=== PATIENT | female | born 1940 | race Caucasian/White ===

== ENCOUNTER 2017-12-11 17:59 | Emergency (ER) | payer MEDICARE, BC ==
[~2017-12-11] VITALS: Ht 170.2 cm; Wt 107.0 kg
[~2017-12-11 17:59] MED LIST: AMLO5TAB PO; ATOR40TA PO; CARV25TA2 PO; CLOT15CR74 TP; ESCI10TA PO; FURO-149 PO; GLIP5TAB13 PO; IPRA3AMP IH; LACT10SO7 PO; LAMO100T65 PO; LEVO137T24 PO; LORA1TAB PO; METF500T PO; MIRA50TA PO; MONT10TA21 PO; OMEP40CA37 PO; POTA10TA19 PO; RISP1TAB13 PO; SPIR25TA5 PO; TRAM50TA2 PO; TRAZ-146 PO; VALS160T2 PO
[2017-12-11 18:57] LABS: BASOPHILS % (AUTO) 0.3 % (0-1); EOSINOPHILS # (AUTO) 0.1 X10'3 (0-0.9); EOSINOPHILS % (AUTO) 1.1 % (0-6); HEMATOCRIT 43.6 % (35.0-45.0); HEMOGLOBIN 14.4 g/dl (12.0-16.0); LYMPHOCYTES # (AUTO) 2.1 X10'3 (1.1-4.8); LYMPHOCYTES % (AUTO) 19.5 % (21-51); MEAN CORPUSCULAR HEMOGLOBIN 31.2 PG (27.0-31.0); MEAN CORPUSCULAR VOLUME 94.5 FL (78-98); MEAN PLATELET VOLUME 7.7 FL (7.4-10.4); MONOCYTES % (AUTO) 9.7 % (2-12); NEUTROPHILS # (AUTO) 7.5 X10'3 (1.8-7.7); NEUTROPHILS % (AUTO) 69.4 % (42-75); PLATELET COUNT 294 X10'3 (140-440); RED BLOOD COUNT 4.62 X10'6 (4.20-5.60); RED CELL DISTRIBUTION WIDTH 14.6 % (11.5-14.5); WHITE BLOOD COUNT 10.8 X10'3 (4.5-11.0)
[2017-12-11 18:59] LABS: CLARITY,URINE Clear (Clear); COLOR,URINE Yellow (Yellow); GLUCOSE, URINE Negative (Neg); KETONES,URINE Negative (Neg); LEUKOCYTE ESTERASE ,URINE Negative (Neg); NITRITES, URINE Negative (Neg); OCCULT BLOOD,URINE Negative (Neg); PH,URINE 7.5 (4.8-8.0); PROTEIN,URINE Trace mg/dl (Neg)
[2017-12-11 19:02] LABS: UA COLLECTION TYPE CLN CATCH MIDSTREAM
[2017-12-11 19:04] LABS: BACTERIA,URINE FEW /HPF (Neg); RBC,URINE 0-2 /HPF (0-2); SQUAMOUS EPITHELIAL CELL,UR FEW /LPF (FEW); WBC,URINE 0-4 /HPF (0-4)
[2017-12-11 19:05] LABS: URINE AMPHETAMINE SCREEN NEGATIVE (Neg); URINE BARBITUATE SCREEN NEGATIVE (Neg); URINE BENZODIAZEPINES SCREEN NEGATIVE (Neg); URINE CANNABINOID SCREEN NEGATIVE (Neg); URINE COCAINE SCREEN NEGATIVE (Neg); URINE METHADONE SCREEN NEGATIVE (Neg); URINE OPIATE SCREEN POSITIVE (Neg); URINE PHENCYCLIDINE SCREEN NEGATIVE (Neg)
[2017-12-11 19:13] LABS: ALANINE AMINOTRANSFERASE 23 U/L (12-78); ALBUMIN 3.8 G/DL (3.4-5.0); ALBUMIN/GLOBULIN RATIO 0.8 (1.1-1.5); ALKALINE PHOSPHATASE 85 IU/L (46-116); ANION GAP 12 (8-16); ASPARTATE AMINO TRANSFERASE 23 U/L (10-37); BILIRUBIN,TOTAL 0.4 MG/DL (0.1-1.0); BLOOD UREA NITROGEN 17 MG/DL (7-18); BUN/CREATININE RATIO 20.5 (6.6-38.0); CALCIUM 9.7 MG/DL (8.5-10.1); CHLORIDE 93 MMOL/L (99-107); CREATININE 0.83 MG/DL (0.40-0.90); GLUCOSE 144 MG/DL (70-104); POTASSIUM 3.6 MMOL/L (3.5-5.1); SODIUM 137 MMOL/L (135-145); TOTAL CARBON DIOXIDE 32.1 MMOL/L (24-32); TOTAL PROTEIN 8.5 G/DL (6.4-8.2); eGFR 67 ML/MIN
[2017-12-11 19:22] LABS: ETHANOL < 0.010 GM/DL (0.0-0.010)
[2017-12-11 19:27] LABS: ACETAMINOPHEN < 2.0 UG/ML (10-30)
[2017-12-11 20:36] VITALS: BP 161/95
[2017-12-11] MEDS ORDERED: HYDROcodone/acetaminophen 10/325mg tab PO ONE (21:30)
[2017-12-11] MEDS ORDERED: HYDR-3972 (23:53)
[2017-12-11] MEDS ORDERED: LUBI24CA5 PO (23:57)
[2017-12-11] MEDS ORDERED: ACET-2119 PO (23:57)
[2017-12-11] MEDS ORDERED: ONDA4TAB6 PO (23:57)
[2017-12-11] MEDS ORDERED: FENT-91 TD (23:57)
[2017-12-31] MEDS ORDERED: PANT40TA4 PO (07:32)
[2017-12-31] MEDS ORDERED: METF500T6 PO (07:32)
[2017-12-31] MEDS ORDERED: DULO30CA51 PO ×2 (07:32)
[2017-12-31] MEDS ORDERED: LURA80TA3 PO (07:32)
[2017-12-31] MEDS ORDERED: LISI-604 PO (07:32)
[2017-12-31] MEDS ORDERED: FURO40TA4 PO (07:32)
== END 2017-12-11 23:23 ==
LOC: ER 17:59 → EEVIPCON 23:00 → ADULT MH 23:00 → UNDOADMIN 23:00 → UNDODISIN 23:23 → ER 23:23 → CANBEDREQ 12-12 00:52
DX: F41.9 Anxiety disorder, unspecified (principal); F32.9 Major depressive disorder, single episode, unspecified; R45.851 Suicidal ideations; I10 Essential (primary) hypertension; J45.909 Unspecified asthma, uncomplicated; G89.29 Other chronic pain; Z98.890 Other specified postprocedural states; Z79.84 Long term (current) use of oral hypoglycemic drugs; Z79.899 Other long term (current) drug therapy
CPT/HCPCS: 36415; 80053; 80305; 80320; 80329; 81001; 84443; 85025; 99285

== ENCOUNTER 2018-11-10 08:16 | Inpatient (IN) | payer MEDICARE, BC ==
[~2018-11-10] VITALS: Ht 170.2 cm; Wt 95.0 kg
[~2018-11-10 08:16] MED LIST changes: +ACET-2119 PO; -AMLO5TAB PO; -CLOT15CR74 TP; +DULO30CA51 PO; -ESCI10TA PO; +FURO40TA4 PO; -GLIP5TAB13 PO; +HYDR-3972; -IPRA3AMP IH; +IPRA3AMP31 IH; -LACT10SO7 PO; +LISI-604 PO; +LUBI24CA5 PO; +LURA80TA3 PO; +METF-950 PO; -METF500T PO; -OMEP40CA37 PO; +PANT40TA4 PO; -RISP1TAB13 PO; -SPIR25TA5 PO; -TRAM50TA2 PO; -TRAZ-146 PO; +TRAZ-219 PO; -VALS160T2 PO
[2018-11-10 09:02] LABS: BASOPHILS % (AUTO) 0.4 % (0-1); EOSINOPHILS % (AUTO) 0.2 % (0-6); HEMATOCRIT 44.6 % (35.0-45.0); HEMOGLOBIN 15.5 g/dl (12.0-16.0); LYMPHOCYTES % (AUTO) 21.1 % (21-51); MEAN CORPUSCULAR HEMOGLOBIN 31.6 PG (27.0-31.0); MEAN CORPUSCULAR HGB CONC 34.8 g/dL (33.0-36.5); MEAN CORPUSCULAR VOLUME 90.9 FL (78-98); MEAN PLATELET VOLUME 7.2 FL (7.4-10.4); MONOCYTES # (AUTO) 1.2 X10'3 (0-0.9); MONOCYTES % (AUTO) 12.6 % (2-12); NEUTROPHILS # (AUTO) 6.3 X10'3 (1.8-7.7); NEUTROPHILS % (AUTO) 65.7 % (42-75); PLATELET COUNT 278 X10'3 (140-440); RED BLOOD COUNT 4.91 X10'6 (4.20-5.60); RED CELL DISTRIBUTION WIDTH 13.3 % (11.5-14.5); WHITE BLOOD COUNT 9.6 X10'3 (4.5-11.0)
[2018-11-10 09:16] LABS: ALANINE AMINOTRANSFERASE 29 U/L (12-78); ALBUMIN 3.5 G/DL (3.4-5.0); ALBUMIN/GLOBULIN RATIO 0.9 (1.1-1.5); ALKALINE PHOSPHATASE 91 IU/L (46-116); ANION GAP 13 (8-16); ASPARTATE AMINO TRANSFERASE 39 U/L (10-37); BLOOD UREA NITROGEN 16 MG/DL (7-18); BUN/CREATININE RATIO 16.3 (6.6-38.0); CALCIUM 9.6 MG/DL (8.5-10.1); CHLORIDE 81 MMOL/L (99-107); CREATININE 0.98 MG/DL (0.40-0.90); GLUCOSE 164 MG/DL (70-104); LIPASE 137 U/L (73-393); SODIUM 121 MMOL/L (135-145); TOTAL CARBON DIOXIDE 26.9 MMOL/L (24-32); TOTAL PROTEIN 7.5 G/DL (6.4-8.2); eGFR 55 ML/MIN
[2018-11-10 09:19] LABS: POTASSIUM 2.6 MMOL/L (3.5-5.1)
[2018-11-10] MEDS ORDERED: normal saline 1000ML IV soln IVB ONE (09:25)
[2018-11-10] MEDS ORDERED: potassium Cl 20 mEq SR tablet PO ONE (09:25)
[2018-11-10] MEDS ORDERED: ondansetron/PF 4mg/2ml inj IV ONE (09:40)
[2018-11-10 09:42] LABS: MAGNESIUM 1.2 MG/DL (1.5-2.4)
[2018-11-10] MEDS: potassium 10mEq/100ml NS w/LIDOcaine (10mg/bag) IV SCH ×2 (09:45→11:03)
[2018-11-10] MEDS ORDERED: HYDROcodone/acetaminophen 10/325mg tab PO ONE (10:15)
[2018-11-10 10:22] LABS: CLARITY,URINE CLEAR (Clear); COLOR,URINE YELLOW (Yellow); GLUCOSE, URINE 100 mg/dl (Neg); KETONES,URINE 15 mg/dl (Neg); LEUKOCYTE ESTERASE ,URINE NEGATIVE (Neg); NITRITES, URINE NEGATIVE (Neg); OCCULT BLOOD,URINE TRACE-INTACT (Neg); PH,URINE 5.5 (4.8-8.0); PROTEIN,URINE 30 mg/dl (Neg); UROBILINOGEN,URINE 0.2 E.U/dL (0.2-1.0)
[2018-11-10 10:26] LABS: UA COLLECTION TYPE STRAIGHT CATH
[2018-11-10 10:30] LABS: BACTERIA,URINE FEW /HPF (Neg); MUCUS STRANDS FEW /LPF (Neg); SQUAMOUS EPITHELIAL CELL,UR FEW /LPF (FEW); WBC,URINE 0-4 /HPF (0-4)
[2018-11-10] MEDS ORDERED: insulin Lispro (HumaLOG) vial - multi-dose SQ SCH (10:55)
[2018-11-10] MEDS ORDERED: dextrose 50%-water 50ml dispensing syringe IV PRN ×2 (10:55)
[2018-11-10] MEDS ORDERED: metoclopramide 5 mg/ml inj IV PRN (10:55)
[2018-11-10] MEDS ORDERED: mag hydrox/Alum hydrox/simeth 30ml oral suspension PO PRN (10:55)
[2018-11-10] MEDS ORDERED: glucagon, human recombinant 1mg kit SUBCUT PRN (10:55)
[2018-11-10] MEDS: K and/or MAG REPLACEMENT MC SCH (10:55)
[2018-11-10] MEDS ORDERED: acetaminophen 325mg tablet PO PRN ×2 (10:55)
[2018-11-10] MEDS ORDERED: dextrose ORAL solution 15 GM/59 ML bottle PO PRN ×2 (10:55)
[2018-11-10] MEDS ORDERED: potassium Cl 40MEQ/NS 500ml 500 ML IV PRN ×2 (10:55)
[2018-11-10] MEDS ORDERED: magnesium 4gm in 100ml NS 100 ML IV PRN (10:55)
[2018-11-10] MEDS ORDERED: magnesium 2GM in 50ml NS 50 ML IV PRN (10:55)
[2018-11-10] MEDS ORDERED: magnesium hydroxide 30ml (MOM) UD suspension PO PRN (10:55)
[2018-11-10] MEDS ORDERED: potassium Cl 20 mEq SR tablet PO PRN ×2 (10:55)
[2018-11-10] MEDS ORDERED: ondansetron/PF 4mg/2ml inj IV PRN (10:55)
[2018-11-10] MEDS ORDERED: MESSAGE TO PHARMACY PO ONE (10:55)
[2018-11-10 11:11] LABS: URINE AMPHETAMINE SCREEN NEGATIVE (Neg); URINE BARBITUATE SCREEN NEGATIVE (Neg); URINE BENZODIAZEPINES SCREEN NEGATIVE (Neg); URINE CANNABINOID SCREEN NEGATIVE (Neg); URINE COCAINE SCREEN NEGATIVE (Neg); URINE METHADONE SCREEN NEGATIVE (Neg); URINE OPIATE SCREEN NEGATIVE (Neg); URINE PHENCYCLIDINE SCREEN NEGATIVE (Neg)
[2018-11-10] MEDS: potassium Cl 20mEq in NS 1,000 ML IV SCH ×2 (11:36→20:51)
[2018-11-10 11:45] LABS: HEMOGLOBIN A1C 6.9 % (4.5-6.2)
[2018-11-10] MEDS ORDERED: HYDR-4353 PO (12:36)
[2018-11-10] MEDS ORDERED: OMEP20TA23 PO (12:36)
[2018-11-10] MEDS ORDERED: LACT10SO PO (12:36)
[2018-11-10] MEDS ORDERED: AMLO2.5T2 PO (12:36)
[2018-11-10] MEDS ORDERED: LOSA50TA64 PO (12:36)
[2018-11-10] MEDS ORDERED: METF-436 PO (12:36)
[2018-11-10] MEDS ORDERED: ARIP5TAB20 PO (12:36)
[2018-11-10] MEDS ORDERED: DULO60CA64 PO (12:36)
[2018-11-10] MEDS ORDERED: LAMO200T PO (12:36)
[2018-11-10 13:00] VITALS: BP 161/97
--- NOTE | 2018-11-10 13:00 | NUR ---
Received report from ED RN Shayan. Patient arrived to unit at 1300, was transferred to bed and vital signs were obtained. Telemetry monitoring was initiated and a wick was placed. 2RN skin check was obtained and physical assessment was completed. Pt is comfortable in bed at this time, and was oriented to the room. is at bedside, will continue to monitor.
--- NOTE | 2018-11-10 14:41 | NUR ---
PAGER ID: [phone] MESSAGE: [id number]. Pt's K came back critical at 2.9. Will replace per protocol. Priyanka [id number]
[2018-11-10 15:00] VITALS: BP 165/79
[2018-11-10] MEDS: LIDOcaine 1% 30ml vial 5 ML in potassium Cl 40MEQ/NS 500ml 500 ML IV SCH ×2 (17:20→21:29)
[2018-11-10] MEDS ORDERED: carVEDilol 12.5mg tablet PO SCH (17:30)
[2018-11-10] MEDS ORDERED: non-formulary drug (Carvedilol 1 TAB) PO SCH (17:30)
[2018-11-10] MEDS ORDERED: non-formulary drug (Potassium Chloride (Klor-Con) 1 TAB) PO SCH (17:30)
[2018-11-10] MEDS: potassium chloride 10mEq ER tablet PO SCH (17:30)
[2018-11-10] MEDS ORDERED: LORazepam 1 MG tablet PO ONE (17:35)
[2018-11-10 18:00] VITALS: BP 172/97
--- NOTE | 2018-11-10 18:54 | NUR ---
Patient would like to have sariah Martinez notified of any medical changes. Phone number is in the SBAR.
[2018-11-10] MEDS: HYDROcodone/acetaminophen 10/325mg tab PO PRN ×2 (19:14→23:29)
[2018-11-10] MEDS: duloxetine 30mg CAPSULE.DR PO SCH (19:15)
[2018-11-10] MEDS: furosemide 40mg tablet PO SCH (19:15)
[2018-11-10] MEDS: magnesium Cl slow-release 64mg tablet PO PRN (19:16)
[2018-11-10] MEDS: lubiprostone 24mcg capsule PO SCH (19:16)
[2018-11-10] MEDS ORDERED: non-formulary drug (Duloxetine HCl 1 CAP) PO SCH (20:00)
[2018-11-10] MEDS: ipratropium/albuterol 3ml nebule IH SCH (20:26)
[2018-11-10] MEDS: NUT.TX.GLUC.INTOLER,LAC-FR,SOY (GLUCERNA) 237 ML PO SCH (20:40)
[2018-11-10] MEDS ORDERED: non-formulary drug (Trazodone HCl 3 TAB) PO SCH (21:00)
[2018-11-10] MEDS ORDERED: LAMOTRIGINE PO SCH (21:00)
[2018-11-10] MEDS: insulin glargine (Lantus) pen - multi-dose SQ SCH (21:00)
[2018-11-10] MEDS ORDERED: temazepam 15mg capsule PO PRN (21:00)
[2018-11-10] MEDS: traZODone 150mg tablet PO SCH (21:20)
[2018-11-10] MEDS: lamoTRIgine 100mg tablet PO SCH (21:20)
[2018-11-10] MEDS: diatr meglu/diatrizoate 30ml oral sol.-(3 dose) bottle PO SCH (21:26)
[2018-11-10 22:00] VITALS: BP 103/53
[2018-11-10] MEDS: LORazepam 1 MG tablet PO SCH (23:29)
[2018-11-11 02:00] VITALS: BP 98/55
--- NOTE | 2018-11-11 02:50 | NUR ---
Per telemetry, pt in afib with HR trending in mid 30's to low 40's. Notified MD, stated to hold coreg and ensure SBP >100 for administration of losartan and amlodipine. Will continue to monitor.
[2018-11-11] MEDS: potassium Cl 20mEq in NS 1,000 ML IV SCH ×4 (02:52→23:57)
[2018-11-11 05:06] LABS: BASOPHILS # (AUTO) 0.1 X10'3 (0-0.2); BASOPHILS % (AUTO) 0.6 % (0-1); EOSINOPHILS # (AUTO) 0.1 X10'3 (0-0.9); EOSINOPHILS % (AUTO) 0.9 % (0-6); HEMATOCRIT 36.9 % (35.0-45.0); HEMOGLOBIN 12.7 g/dl (12.0-16.0); LYMPHOCYTES # (AUTO) 2.9 X10'3 (1.1-4.8); LYMPHOCYTES % (AUTO) 32.3 % (21-51); MEAN CORPUSCULAR HEMOGLOBIN 31.6 PG (27.0-31.0); MEAN CORPUSCULAR HGB CONC 34.4 g/dL (33.0-36.5); MEAN CORPUSCULAR VOLUME 91.8 FL (78-98); MONOCYTES # (AUTO) 1.3 X10'3 (0-0.9); MONOCYTES % (AUTO) 14.6 % (2-12); NEUTROPHILS # (AUTO) 4.7 X10'3 (1.8-7.7); NEUTROPHILS % (AUTO) 51.6 % (42-75); PLATELET COUNT 226 X10'3 (140-440); RED BLOOD COUNT 4.02 X10'6 (4.20-5.60); RED CELL DISTRIBUTION WIDTH 13.2 % (11.5-14.5); WHITE BLOOD COUNT 9.1 X10'3 (4.5-11.0)
[2018-11-11 05:22] LABS: ALANINE AMINOTRANSFERASE 28 U/L (12-78); ALBUMIN 2.7 G/DL (3.4-5.0); ALBUMIN/GLOBULIN RATIO 0.9 (1.1-1.5); ALKALINE PHOSPHATASE 70 IU/L (46-116); ANION GAP 6 (8-16); ASPARTATE AMINO TRANSFERASE 42 U/L (10-37); BILIRUBIN,TOTAL 0.6 MG/DL (0.1-1.0); BLOOD UREA NITROGEN 12 MG/DL (7-18); BUN/CREATININE RATIO 15.6 (6.6-38.0); CALCIUM 8.3 MG/DL (8.5-10.1); CHLORIDE 90 MMOL/L (99-107); CREATININE 0.77 MG/DL (0.40-0.90); GLUCOSE 116 MG/DL (70-104); MAGNESIUM 1.2 MG/DL (1.5-2.4); PHOSPHORUS 3.2 MG/DL (2.3-4.5); POTASSIUM 4.2 MMOL/L (3.5-5.1); SODIUM 124 MMOL/L (135-145); TOTAL CARBON DIOXIDE 27.6 MMOL/L (24-32); TOTAL PROTEIN 5.8 G/DL (6.4-8.2); eGFR 73 ML/MIN
--- NOTE | 2018-11-11 06:20 | NUR ---
Patient in room PCU 3012. I have received report from YUE Wahl and had the opportunity to ask questions and assume patient care. Patient alert and awake at this time. Call light and items of frequent use in reach of patient.
--- NOTE | 2018-11-11 06:38 | NUR ---
Problems reprioritized. Patient report given, questions answered & plan of care reviewed with YUE Scott.
[2018-11-11 06:55] VITALS: BP 90/50
[2018-11-11] MEDS: ipratropium/albuterol 3ml nebule IH SCH ×4 (06:55→20:24)
[2018-11-11] MEDS: diatr meglu/diatrizoate 30ml oral sol.-(3 dose) bottle PO SCH ×2 (07:36→12:09)
[2018-11-11] MEDS: levoTHYROXINE 112mcg tablet PO SCH (07:37)
[2018-11-11] MEDS: levoTHYROXINE 25mcg tablet PO SCH (07:37)
[2018-11-11] MEDS: K and/or MAG REPLACEMENT MC SCH (07:39)
[2018-11-11] MEDS: potassium chloride 10mEq ER tablet PO SCH ×2 (07:39→16:53)
[2018-11-11] MEDS: lubiprostone 24mcg capsule PO SCH ×2 (07:41→16:53)
[2018-11-11] MEDS: aripiprazole 5mg tablet PO SCH (07:42)
[2018-11-11] MEDS: duloxetine 30mg CAPSULE.DR PO SCH ×2 (07:43→20:56)
[2018-11-11] MEDS: losartan 50mg tablet PO SCH (07:43)
[2018-11-11] MEDS: NUT.TX.GLUC.INTOLER,LAC-FR,SOY (GLUCERNA) 237 ML PO SCH ×3 (07:44→18:00)
[2018-11-11] MEDS: furosemide 40mg tablet PO SCH ×2 (07:45→20:56)
[2018-11-11] MEDS: atorvastatin 20mg tablet PO SCH (07:45)
[2018-11-11] MEDS: amLODIPine 5mg tablet PO SCH (07:45)
[2018-11-11] MEDS: montelukast 10mg tablet PO SCH (07:46)
[2018-11-11] MEDS: magnesium Cl slow-release 64mg tablet PO PRN ×2 (07:47→20:57)
[2018-11-11] MEDS: LORazepam 1 MG tablet PO SCH ×3 (07:51→23:57)
[2018-11-11] MEDS: enoxaparin 40mg/0.4ml syringe SQ SCH (07:54)
[2018-11-11] MEDS: HYDROcodone/acetaminophen 10/325mg tab PO PRN ×2 (07:54→19:40)
[2018-11-11] MEDS ORDERED: non-formulary drug (Levothyroxine Sodium (Synthroid) 1 TAB) PO SCH (08:00)
[2018-11-11] MEDS ORDERED: non-formulary drug (Atorvastatin Calcium* (Lipitor*) 1 TAB) PO SCH (08:00)
[2018-11-11 11:35] VITALS: BP 129/63
[2018-11-11] MEDS ORDERED: iohexol 300mg/ml 100ml inj. ONE (12:09)
--- NOTE | 2018-11-11 12:30 | NUR ---
Patient to CT via gurney with x1 staff. Patient alert, oriented and in no apparent distress on 2.0 L NC.
--- NOTE | 2018-11-11 12:58 | NUR ---
patient returned from CT. Patient alert oriented and in no apparent distress on 2L NC. Call light and items of frequent use in reach of patient at this time.
[2018-11-11] MEDS: MESSAGE TO NURSING PO NR (13:11)
[2018-11-11 15:00] VITALS: BP 109/63
[2018-11-11 18:00] VITALS: BP 118/52
--- NOTE | 2018-11-11 18:31 | NUR ---
Problems reprioritized. Patient report given, questions answered & plan of care reviewed with YUE Giron. Patient resting comfortably at this time. Call light and items of frequent use in reach of patient.
[2018-11-11] MEDS: lamoTRIgine 100mg tablet PO SCH (20:56)
[2018-11-11] MEDS: traZODone 150mg tablet PO SCH (20:56)
[2018-11-11] MEDS: insulin glargine (Lantus) pen - multi-dose SQ SCH (21:00)
[2018-11-11 23:00] VITALS: BP 106/57
[2018-11-12 03:00] VITALS: BP 119/62
[2018-11-12] MEDS: HYDROcodone/acetaminophen 10/325mg tab PO PRN ×3 (03:47→20:12)
[2018-11-12 05:57] LABS: BASOPHILS % (AUTO) 0.7 % (0-1); EOSINOPHILS # (AUTO) 0.2 X10'3 (0-0.9); EOSINOPHILS % (AUTO) 3.7 % (0-6); HEMATOCRIT 36.6 % (35.0-45.0); HEMOGLOBIN 12.7 g/dl (12.0-16.0); LYMPHOCYTES % (AUTO) 33.7 % (21-51); MEAN CORPUSCULAR HGB CONC 34.8 g/dL (33.0-36.5); MEAN CORPUSCULAR VOLUME 92.1 FL (78-98); MEAN PLATELET VOLUME 7.5 FL (7.4-10.4); MONOCYTES # (AUTO) 0.9 X10'3 (0-0.9); MONOCYTES % (AUTO) 14.9 % (2-12); NEUTROPHILS # (AUTO) 2.7 X10'3 (1.8-7.7); PLATELET COUNT 230 X10'3 (140-440); RED BLOOD COUNT 3.98 X10'6 (4.20-5.60); RED CELL DISTRIBUTION WIDTH 13.3 % (11.5-14.5); WHITE BLOOD COUNT 5.8 X10'3 (4.5-11.0)
--- NOTE | 2018-11-12 06:00 | NUR ---
Patient in room PCU 3012. I have received report from YUE Giron and had the opportunity to ask questions and assume patient care.
[2018-11-12 06:19] LABS: ALANINE AMINOTRANSFERASE 25 U/L (12-78); ALBUMIN 2.7 G/DL (3.4-5.0); ALBUMIN/GLOBULIN RATIO 0.8 (1.1-1.5); ALKALINE PHOSPHATASE 71 IU/L (46-116); ANION GAP 6 (8-16); ASPARTATE AMINO TRANSFERASE 35 U/L (10-37); BILIRUBIN,TOTAL 0.4 MG/DL (0.1-1.0); BLOOD UREA NITROGEN 10 MG/DL (7-18); CALCIUM 8.5 MG/DL (8.5-10.1); CHLORIDE 97 MMOL/L (99-107); CREATININE 0.77 MG/DL (0.40-0.90); GLUCOSE 118 MG/DL (70-104); MAGNESIUM 1.3 MG/DL (1.5-2.4); PHOSPHORUS 3.1 MG/DL (2.3-4.5); POTASSIUM 3.9 MMOL/L (3.5-5.1); SODIUM 130 MMOL/L (135-145); TOTAL CARBON DIOXIDE 27.1 MMOL/L (24-32); TOTAL PROTEIN 5.9 G/DL (6.4-8.2); eGFR 73 ML/MIN
[2018-11-12] MEDS: ipratropium/albuterol 3ml nebule IH SCH ×4 (07:12→21:11)
--- NOTE | 2018-11-12 07:44 | NUR ---
PAGER ID: [phone] MESSAGE: [id number] Shantelle Larsen K 2.9, following protocol, FYI. Zuri TURNER [id number]
[2018-11-12 07:53] VITALS: BP 130/69
[2018-11-12] MEDS: NUT.TX.GLUC.INTOLER,LAC-FR,SOY (GLUCERNA) 237 ML PO SCH ×3 (08:00→19:02)
[2018-11-12] MEDS: K and/or MAG REPLACEMENT MC SCH (08:00)
[2018-11-12] MEDS: levoTHYROXINE 25mcg tablet PO SCH (08:41)
[2018-11-12] MEDS: levoTHYROXINE 112mcg tablet PO SCH (08:41)
[2018-11-12] MEDS: furosemide 40mg tablet PO SCH (08:42)
[2018-11-12] MEDS: LORazepam 1 MG tablet PO SCH ×2 (08:44→20:12)
[2018-11-12] MEDS: aripiprazole 5mg tablet PO SCH (08:45)
[2018-11-12] MEDS: losartan 50mg tablet PO SCH (08:45)
[2018-11-12] MEDS: atorvastatin 20mg tablet PO SCH (08:48)
[2018-11-12] MEDS: magnesium Cl slow-release 64mg tablet PO PRN (08:49)
[2018-11-12] MEDS: potassium chloride 10mEq ER tablet PO SCH ×2 (08:49→17:38)
[2018-11-12] MEDS: lubiprostone 24mcg capsule PO SCH ×2 (08:49→17:37)
[2018-11-12] MEDS: duloxetine 30mg CAPSULE.DR PO SCH ×2 (08:49→20:25)
[2018-11-12] MEDS: amLODIPine 5mg tablet PO SCH (08:50)
[2018-11-12] MEDS: enoxaparin 40mg/0.4ml syringe SQ SCH (08:51)
[2018-11-12] MEDS: montelukast 10mg tablet PO SCH (08:51)
[2018-11-12] MEDS: MESSAGE TO NURSING PO NR (10:00)
[2018-11-12 11:00] VITALS: BP 109/63
[2018-11-12] MEDS: potassium Cl 20mEq in NS 1,000 ML IV SCH (12:58)
--- NOTE | 2018-11-12 18:00 | NUR ---
Problems reprioritized. Patient report given, questions answered & plan of care reviewed with YUE Ball.
[2018-11-12] MEDS ORDERED: montelukast 10mg tablet PO PRN (18:05)
[2018-11-12 18:55] VITALS: BP 155/84
[2018-11-12] MEDS: lamoTRIgine 100mg tablet PO SCH (20:12)
[2018-11-12] MEDS: traZODone 50mg tablet PO SCH (20:13)
[2018-11-12] MEDS: insulin glargine (Lantus) pen - multi-dose SQ SCH (20:53)
[2018-11-12 22:00] VITALS: BP 125/65
[2018-11-13 02:00] VITALS: BP 138/72
[2018-11-13] MEDS: HYDROcodone/acetaminophen 10/325mg tab PO PRN ×2 (02:55→21:09)
[2018-11-13 05:43] LABS: BASOPHILS % (AUTO) 0.7 % (0-1); EOSINOPHILS # (AUTO) 0.2 X10'3 (0-0.9); EOSINOPHILS % (AUTO) 2.8 % (0-6); HEMATOCRIT 39.5 % (35.0-45.0); HEMOGLOBIN 13.7 g/dl (12.0-16.0); LYMPHOCYTES # (AUTO) 1.5 X10'3 (1.1-4.8); LYMPHOCYTES % (AUTO) 23.7 % (21-51); MEAN CORPUSCULAR HEMOGLOBIN 31.8 PG (27.0-31.0); MEAN CORPUSCULAR HGB CONC 34.6 g/dL (33.0-36.5); MEAN CORPUSCULAR VOLUME 91.8 FL (78-98); MEAN PLATELET VOLUME 7.4 FL (7.4-10.4); MONOCYTES % (AUTO) 15.4 % (2-12); NEUTROPHILS # (AUTO) 3.6 X10'3 (1.8-7.7); NEUTROPHILS % (AUTO) 57.4 % (42-75); PLATELET COUNT 255 X10'3 (140-440); RED CELL DISTRIBUTION WIDTH 13.7 % (11.5-14.5); WHITE BLOOD COUNT 6.2 X10'3 (4.5-11.0)
[2018-11-13 06:00] VITALS: BP 105/63
[2018-11-13 06:02] LABS: ALBUMIN 2.9 G/DL (3.4-5.0); ANION GAP 5 (8-16); BLOOD UREA NITROGEN 6 MG/DL (7-18); BUN/CREATININE RATIO 9.5 (6.6-38.0); CALCIUM 8.8 MG/DL (8.5-10.1); CHLORIDE 99 MMOL/L (99-107); CREATININE 0.63 MG/DL (0.40-0.90); GLUCOSE 149 MG/DL (70-104); MAGNESIUM 2.3 MG/DL (1.5-2.4); PHOSPHORUS 3.3 MG/DL (2.3-4.5); POTASSIUM 3.6 MMOL/L (3.5-5.1); SODIUM 134 MMOL/L (135-145); TOTAL CARBON DIOXIDE 30.4 MMOL/L (24-32); eGFR > 90 ML/MIN
[2018-11-13] MEDS: lubiprostone 24mcg capsule PO SCH ×2 (07:30→19:23)
[2018-11-13] MEDS: NUT.TX.GLUC.INTOLER,LAC-FR,SOY (GLUCERNA) 237 ML PO SCH ×3 (08:00→18:00)
[2018-11-13] MEDS: ipratropium/albuterol 3ml nebule IH SCH ×3 (08:00→19:40)
[2018-11-13] MEDS: K and/or MAG REPLACEMENT MC SCH (08:00)
[2018-11-13] MEDS: duloxetine 30mg CAPSULE.DR PO SCH ×2 (10:02→19:22)
[2018-11-13] MEDS: LORazepam 1 MG tablet PO SCH ×2 (10:03→19:22)
[2018-11-13] MEDS: atorvastatin 20mg tablet PO SCH (10:03)
[2018-11-13] MEDS: potassium chloride 10mEq ER tablet PO SCH ×2 (10:03→17:33)
[2018-11-13] MEDS: furosemide 40mg tablet PO SCH (10:04)
[2018-11-13] MEDS: levoTHYROXINE 25mcg tablet PO SCH (10:05)
[2018-11-13] MEDS: levoTHYROXINE 112mcg tablet PO SCH (10:06)
[2018-11-13] MEDS: aripiprazole 5mg tablet PO SCH (10:07)
[2018-11-13] MEDS: losartan 50mg tablet PO SCH (10:07)
[2018-11-13] MEDS: amLODIPine 5mg tablet PO SCH (10:08)
[2018-11-13] MEDS: MESSAGE TO NURSING PO NR (10:11)
[2018-11-13] MEDS: enoxaparin 40mg/0.4ml syringe SQ SCH (10:11)
[2018-11-13 11:11] VITALS: BP 117/90
[2018-11-13 15:15] VITALS: BP 132/59
[2018-11-13 18:00] VITALS: BP 131/76
--- NOTE | 2018-11-13 18:30 | NUR ---
Patient in room PCU 3012. I have received report from Una TURNER and had the opportunity to ask questions and assume patient care.
[2018-11-13] MEDS: traZODone 50mg tablet PO SCH (20:53)
[2018-11-13] MEDS: metoprolol tartrate 12.5mg (1/2 tablet) PO SCH (20:53)
[2018-11-13] MEDS: lamoTRIgine 100mg tablet PO SCH (20:53)
[2018-11-13 21:00] VITALS: BP 102/54
[2018-11-13] MEDS: insulin glargine (Lantus) pen - multi-dose SQ SCH (21:00)
[2018-11-14 02:00] VITALS: BP 129/74
[2018-11-14] MEDS: HYDROcodone/acetaminophen 10/325mg tab PO PRN ×2 (02:42→13:58)
[2018-11-14 06:00] VITALS: BP 106/57
[2018-11-14 06:06] LABS: BASOPHILS % (AUTO) 0.6 % (0-1); EOSINOPHILS # (AUTO) 0.2 X10'3 (0-0.9); EOSINOPHILS % (AUTO) 2.8 % (0-6); HEMATOCRIT 35.1 % (35.0-45.0); LYMPHOCYTES # (AUTO) 1.9 X10'3 (1.1-4.8); MEAN CORPUSCULAR HEMOGLOBIN 31.9 PG (27.0-31.0); MEAN CORPUSCULAR HGB CONC 34.1 g/dL (33.0-36.5); MEAN CORPUSCULAR VOLUME 93.5 FL (78-98); MEAN PLATELET VOLUME 7.5 FL (7.4-10.4); MONOCYTES # (AUTO) 0.9 X10'3 (0-0.9); MONOCYTES % (AUTO) 12.9 % (2-12); NEUTROPHILS # (AUTO) 3.8 X10'3 (1.8-7.7); NEUTROPHILS % (AUTO) 55.7 % (42-75); PLATELET COUNT 232 X10'3 (140-440); RED BLOOD COUNT 3.75 X10'6 (4.20-5.60); RED CELL DISTRIBUTION WIDTH 13.6 % (11.5-14.5); WHITE BLOOD COUNT 6.9 X10'3 (4.5-11.0)
[2018-11-14 06:35] LABS: ALBUMIN 2.4 G/DL (3.4-5.0); ANION GAP 3 (8-16); BLOOD UREA NITROGEN 4 MG/DL (7-18); BUN/CREATININE RATIO 6.2 (6.6-38.0); CALCIUM 8.6 MG/DL (8.5-10.1); CHLORIDE 99 MMOL/L (99-107); CREATININE 0.65 MG/DL (0.40-0.90); GLUCOSE 119 MG/DL (70-104); MAGNESIUM 1.5 MG/DL (1.5-2.4); PHOSPHORUS 3.1 MG/DL (2.3-4.5); POTASSIUM 3.9 MMOL/L (3.5-5.1); SODIUM 133 MMOL/L (135-145); TOTAL CARBON DIOXIDE 30.7 MMOL/L (24-32); eGFR 88 ML/MIN
--- NOTE | 2018-11-14 06:42 | NUR ---
Problems reprioritized. Patient report given, questions answered & plan of care reviewed with Curt and Pia RNS.
[2018-11-14] MEDS: ipratropium/albuterol 3ml nebule IH SCH ×2 (07:44→11:04)
[2018-11-14] MEDS: potassium chloride 10mEq ER tablet PO SCH (07:57)
[2018-11-14] MEDS: aripiprazole 5mg tablet PO SCH (07:57)
[2018-11-14] MEDS: atorvastatin 20mg tablet PO SCH (07:58)
[2018-11-14] MEDS: duloxetine 30mg CAPSULE.DR PO SCH (07:59)
[2018-11-14] MEDS: furosemide 40mg tablet PO SCH (07:59)
[2018-11-14] MEDS: metoprolol tartrate 12.5mg (1/2 tablet) PO SCH (07:59)
[2018-11-14] MEDS: amLODIPine 5mg tablet PO SCH (07:59)
[2018-11-14] MEDS: NUT.TX.GLUC.INTOLER,LAC-FR,SOY (GLUCERNA) 237 ML PO SCH ×2 (08:00→13:11)
[2018-11-14] MEDS: levoTHYROXINE 25mcg tablet PO SCH (08:00)
[2018-11-14] MEDS: K and/or MAG REPLACEMENT MC SCH (08:00)
[2018-11-14] MEDS: levoTHYROXINE 112mcg tablet PO SCH (08:01)
[2018-11-14] MEDS: losartan 50mg tablet PO SCH (08:01)
[2018-11-14] MEDS: LORazepam 1 MG tablet PO SCH (08:01)
[2018-11-14] MEDS: enoxaparin 40mg/0.4ml syringe SQ SCH (08:02)
[2018-11-14] MEDS: lubiprostone 24mcg capsule PO SCH (09:20)
[2018-11-14 11:00] VITALS: BP 110/62
--- NOTE | 2018-11-14 11:42 | NUR ---
Initial: Pt admit with electrolyte abnormalities with N/V, diarrhea, and weakness. Pt now constipated with LBM 4/15 and refusing tx for constipation per physical assessment. Pt denies N per MD notes. Pt currently on soft to chew CHO controlled vegetarian diet with 75-100% intake and 100% intake of Glucerna TID meeting nutrient needs. Will continue to follow. Recommendations: 1) Continue soft to chew CHO controlled vegetarian diet 2) Continue Glucerna TID 3) Monitor need for and acceptance of additional bowel care 4) Wt per rx Addendum: 11/14/18 at [address] Amended: Links added.
--- NOTE | 2018-11-14 14:33 | NUR ---
[facility] picked up patient. IV and tele DC'd. Stable for transfer per MD.
--- NOTE | 2018-11-14 18:43 | NUR ---
[place] documentation: I have reviewed and agree with all interventions, assessments performed and documented by YUE Bauer.
--- NOTE | 2018-11-14 18:43 | NUR ---
[place] Medication Administration: For this medication-pass time frame, all medication were reviewed, dispensed, administered and documented per hospital policy by YUE Bauer.
== END 2018-11-14 14:30 | DRG 682 ==
LOC: ER 08:18 → PCU 3S 13:40 → OBSVTOIN 13:40 → CMPBEDREQ 19:44
PROVIDERS: ADMIT Family Medicine; ATTEND Hospitalist
PROC: BW211ZZ Computerized Tomography (CT Scan) of Abdomen and Pelvis using Low Osmolar Contrast (ICD-10-PCS; principal; 2018-11-11)
DX: N17.9 Acute kidney failure, unspecified (principal); G92 Toxic encephalopathy; E87.1 Hypo-osmolality and hyponatremia; I50.32 Chronic diastolic (congestive) heart failure; F41.1 Generalized anxiety disorder; F32.9 Major depressive disorder, single episode, unspecified; E87.6 Hypokalemia; E78.5 Hyperlipidemia, unspecified; E03.9 Hypothyroidism, unspecified; I48.91 Unspecified atrial fibrillation; G89.29 Other chronic pain; E11.9 Type 2 diabetes mellitus without complications; E66.01 Morbid (severe) obesity due to excess calories; I11.0 Hypertensive heart disease with heart failure; R19.7 Diarrhea, unspecified; J45.909 Unspecified asthma, uncomplicated; R29.6 Repeated falls; Z66 Do not resuscitate; Z99.81 Dependence on supplemental oxygen; Z90.710 Acquired absence of both cervix and uterus; Z90.49 Acquired absence of other specified parts of digestive tract; Z79.899 Other long term (current) drug therapy; Z85.41 Personal history of malignant neoplasm of cervix uteri; Z68.32 Body mass index [BMI] 32.0-32.9, adult
CPT/HCPCS: 36415; 71045; 74177; 76700; 80048; 80053; 80305; 81001; 82948; 83036; 83690; 83735; 84100; 84132; 84443; 85025; 87070; 93005; 93306; 94640; 94760; 96361; 96374; 97110; 97116; 97162; 97530; 99285; G0378; J1650; J1815; J2405; J3475; J3480; J3490; Q9963; Q9967